=== PATIENT | male | born 1990 | race Hispanic/Latino ===

== ENCOUNTER 2025-04-02 12:07 | Emergency (ER) | payer SELFPAY ==
[2025-04-02] MEDS ORDERED: LIDOCAINE 2% W/EPI 1:200,000 MPF 20 ML VIAL IM ONE (12:21)
--- NOTE | 2025-04-02 12:39 | ER ---
Nurse's Notes [facility] Name: Garfield Mai Age: 34 yrs Sex: Male : 1990 Arrival Date: 04/02/2025 Time: 12:07 Bed 10 Private MD: Diagnosis: Laceration without foreign body of left thumb without damage to nail Presentation: 04/02 12:22 Chief complaint: Patient states: WAS FIXING THE WASHER AND THE TOOL SLIPPED, CUTTING LT dd2 THUMB. Coronavirus screen: At this time, the client does not indicate any symptoms associated with coronavirus-19. Ebola Screen: No symptoms or risks identified at this time. Initial Sepsis Screen: Does the patient meet any 2 criteria? No. Patient's initial sepsis screen is negative. Does the patient have a suspected source of infection? No. Patient's initial sepsis screen is negative. Risk Assessment: Do you want to hurt yourself or someone else? Patient reports no desire to harm self or others. Onset of symptoms was April 02, 2025. 12:22 Method Of Arrival: Ambulatory dd2 12:22 Acuity: ANA 4 dd2 Triage Assessment: 12:24 General: Appears in no apparent distress. uncomfortable, Behavior is cooperative, dd2 appropriate for age, agitated. Pain: Complains of pain in dorsal aspect of proximal phalanx of left thumb and palmar aspect of proximal phalanx of left thumb Pain currently is 5 out of 10 on a pain scale. EENT: No deficits noted. No signs and/or symptoms were reported regarding the EENT system. Neuro: No deficits noted. Cardiovascular: No deficits noted. Respiratory: No deficits noted. GI: No deficits noted. No signs and/or symptoms were reported involving the gastrointestinal system. : No deficits noted. No signs and/or symptoms were reported regarding the genitourinary system. Derm: Wound noted LT THUMB Wound is LACERATION. Musculoskeletal: No deficits noted. No signs and/or symptoms reported regarding the musculoskeletal system. Injury Description: Laceration sustained to LT THUMB was sustained less than 30 minutes ago. is bleeding profusely at this time. A dressing was applied. Historical: - Allergies: 12:24 No Known Allergies; dd2 - PMHx: 12:24 None; dd2 - PSHx: 12:24 None; dd2 - Immunization history:: Adult Immunizations unknown, Last tetanus immunization: unknown. - Infectious Disease History:: Denies. - Social history:: Smoking status: Patient denies any tobacco usage or history of. Screenin:26 [facility] ED Fall Risk Assessment (Adult) History of falling in the last 3 months, dd2 including since admission No falls in past 3 months (0 pts) Confusion or Disorientation No (0 pts) Intoxicated or Sedated No (0 pts) Impaired Gait No (0 pts) Mobility Assist Device Used No (0 pt) Altered Elimination No (0 pt) Score/Fall Risk Level 0 - 2 = Low Risk Oriented to surroundings, Maintained a safe environment, Educated pt \T\ family on fall prevention, incl call for assistance when getting out of bed, Assessed \T\ reinforced patient's understanding of fall precautions, Hourly rounding (assess needs \T\ fall precautionary measures) done. Abuse screen: Denies threats or abuse. Denies injuries from another. Nutritional screening: No deficits noted. Tuberculosis screening: No symptoms or risk factors identified. Assessment: 12:26 Reassessment: SEE TRIAGE ASSESSMENT FOR FULL ASSESSMENT. dd2 Vital Signs: 12:22 BP 129 / 80; Pulse 82; Resp 17; Temp 98.3; Pulse Ox 98% on R/A; Weight 88.45 kg; Height dd2 5 ft. 8 in. ; Pain 5/10; 12:22 Body Mass Index 29.65 (88.45 kg, 172.72 cm) dd2 12:22 Pain Scale: Adult dd2 [place] Com[place] Score: 12:26 Eye Response: spontaneous(4). Motor Response: obeys commands(6). Verbal Response: dd2 oriented(5). Total: 15. ED Course: 12:08 Patient arrived in ED. mr 12:10 Issa Washington FNP-C is PHCP. dr5 12:10 Brian Rodarte DO is Attending Physician. dr5 12:15 BRIGETTE VERMA, RN is Primary Nurse. dd2 12:24 Triage completed. dd2 12:24 Arm band placed on right wrist. dd2 12:26 Patient has correct armband on for positive identification. Bed in low position. Call dd2 light in reach. Client placed on continuous cardiac and pulse oximetry monitoring. NIBP monitoring applied. Door closed. Noise minimized. Verbal reassurance given. 12:26 Assist provider with laceration repair on left hand and palmar aspect of proximal dd2 phalanx of left thumb and dorsal aspect of proximal phalanx of left thumb that was between 7.6 to 12.5 cm using sutures. Set up tray. Performed by Issa GOMEZ. Patient did not have IV access during this emergency room visit. Patient maintains SpO2 saturation greater than 95% on room air. 12:51 Assist provider with laceration repair Dressed with 4X4s, Kerlix, Patient tolerated dd2 well. Dressings:. Wound care: to laceration located on LT THUMB was cleaned with with SALINE, dressed with 4X4s, Kerlix, Patient tolerated well. 12:54 Provided Education on: D/C EDUCATION. dd2 Administered Medications: 12:29 Drug: Lidocaine-Epinephrine Infiltration -1%: (1:100,000) 20 ml 20 ml Infiltration dd2 once; to bedside {Note: ADMINISTERED BY ISSA WASHINGTON, ESTEVAN.} Volume: 20 ml; Route: Infiltration; Site: affected area; 12:56 Follow up: Response: No adverse reaction dd2 12:51 Drug: Boostrix Tdap IM 0.5 ml IM once; as a single dose Route: IM; Site: left deltoid; dd2 12:56 Follow up: Response: No adverse reaction dd2 Medication: 12:26 Vaccine Information Statement (VIS) provided today. Questions and/or concerns dd2 addressed. VIS edition date: June 13, 2021. Outcome: 12:39 Discharge ordered by . dr5 12:51 Discharged to home ambulatory, dd2 12:51 Condition: stable 12:51 Discharge instructions given to patient, Instructed on discharge instructions, follow up and referral plans. medication usage, Demonstrated understanding of instructions, follow-up care, medications, 12:55 Patient left the ED. dd2 Signatures: Bronwyn Barnes, Raúl Olsen mr BRIGETTE VERMA, RN RN dd2 Issa Washington, PATRICIA [employer] HISTORY TEACHER-Cdr5
--- NOTE | 2025-04-02 12:39 | EDPHYS ---
Physician Documentation [facility] Name: Garfield Mai Age: 34 yrs Sex: Male : 1990 Arrival Date: 04/02/2025 Time: 12:07 Bed 10 Private MD: ED Physician Brian Rodarte HPI: 04/02 12:42 This 34 yrs old Male presents to ER via Ambulatory with complaints of Thumb dr5 laceration. 12:42 Onset: The symptoms/episode began/occurred acutely. Patient is a 34-year-old male with dr5 no past history coming in with laceration to left thumb that occurred right prior to arrival. Patient reports that he was using a air box tester and excellently cut the left thumb. Patient is not up-to-date on tetanus. Patient does not take daily medications.. Historical: - Allergies: 12:24 No Known Allergies; dd2 - PMHx: 12:24 None; dd2 - PSHx: 12:24 None; dd2 - Immunization history:: Adult Immunizations unknown, Last tetanus immunization: unknown. - Infectious Disease History:: Denies. - Social history:: Smoking status: Patient denies any tobacco usage or history of. ROS: 12:42 Constitutional: as per hpi dr5 Exam: 12:42 Constitutional: This is a well developed, well nourished patient who is awake, alert, dr5 and in no acute distress. Head/Face: Normocephalic, atraumatic. Eyes: Pupils equal round and reactive to light, extra-ocular motions intact. Lids and lashes normal. Conjunctiva and sclera are non-icteric and not injected. Cornea within normal limits. Periorbital areas with no swelling, redness, or edema. Chest/axilla: Normal chest wall appearance and motion. Nontender with no deformity. No lesions are appreciated. Cardiovascular: Regular rate and rhythm with a normal S1 and S2. Normal PMI, no JVD. No pulse deficits. Respiratory: Lungs have equal breath sounds bilaterally, clear to auscultation. No rales, rhonchi or wheezes noted. No increased work of breathing, no retractions or nasal flaring. Abdomen/GI: Soft, non-tender, non-distended Back: No spinal tenderness. No costovertebral tenderness. Full range of motion. 12:42 Musculoskeletal/extremity: Extremities: noted in the dorsal aspect of proximal phalanx of left thumb: laceration, ROM: no acute changes, intact in all extremities, Circulation is intact in all extremities. Pulses: the dorsal aspect of proximal phalanx of left thumb Sensation intact. Tendon exam: specific tendon testing normal through active and passive range of motion 12:42 Skin: injury, laceration(s), the wound is approximately 2 cm(s), with a depth of .5 cm(s), of the dorsal aspect of proximal phalanx of left thumb, Vital Signs: 12:22 BP 129 / 80; Pulse 82; Resp 17; Temp 98.3; Pulse Ox 98% on R/A; Weight 88.45 kg; Height dd2 5 ft. 8 in. ; Pain 5/10; 12:22 Body Mass Index 29.65 (88.45 kg, 172.72 cm) dd2 12:22 Pain Scale: Adult dd2 [place] Coma Score: 12:26 Eye Response: spontaneous(4). Motor Response: obeys commands(6). Verbal Response: dd2 oriented(5). Total: 15. Laceration: 12:42 Wound Repair of 2cm ( 0.8in ) subcutaneous laceration to dorsal aspect of proximal dr5 phalanx of left thumb. Linear shaped.. Distal neuro/vascular/tendon intact. Anesthesia: Local anesthetic administered with 2 mls of 1% lidocaine w/ Epi. Wound prep: Simple cleansing by me. Skin closed with 7 4-0 Prolene using simple sutures and sterile technique. Dressed with non-adherent dressing. Patient tolerated well. MDM: 12:10 Medical Screening Exam initiated dr5 12:42 Differential diagnosis: Laceration, tendon injury, abrasion. Data reviewed: vital dr5 signs, nurses notes. 12:45 I considered the following discharge prescriptions or medication management in the [facility] emergency department Medications were administered in the Emergency Department. See MAR. Care significantly affected by the following Social Determinants of Health: Poor access to healthcare and/or lack of insurance, Poor access to transportation, Problems related to employment. Counseling: I had a detailed discussion with the patient and/or guardian regarding the historical points, exam findings, and any diagnostic results supporting the discharge/admit diagnosis, the presence of at least one elevated blood pressure reading (>120/80) during this emergency department visit, the need for outpatient follow up, for definitive care, a family practitioner, to return to the emergency department if symptoms worsen or persist or if there are any questions or concerns that arise at home. ED course: Will have patient return in 7 to 10 days for suture removal. Tetanus administered in ER. 7 sutures placed with well approximation of wound. Will give Keflex to prevent infection. All questions answered. Patient wound was wrapped and wound care given. Strict ER precautions given.. 04/02 12:19 Order name: Dressing - Wound; Complete Time: 12:51 dr5 04/02 12:19 Order name: Prolene, Sutures; Complete Time: 12:29 dr5 04/02 12:19 Order name: Setup Suture Tray; Complete Time: 12:29 dr5 Administered Medications: 12:29 Drug: Lidocaine-Epinephrine Infiltration -1%: (1:100,000) 20 ml 20 ml Infiltration dd2 once; to bedside {Note: ADMINISTERED BY ISSA WASHINGTON NP.} Volume: 20 ml; Route: Infiltration; Site: affected area; 12:56 Follow up: Response: No adverse reaction dd2 12:51 Drug: Boostrix Tdap IM 0.5 ml IM once; as a single dose Route: IM; Site: left deltoid; dd2 12:56 Follow up: Response: No adverse reaction dd2 Disposition: 13:23 I was immediately available on-site in the Emergency Department for consultation in the ms3 care of the patient. Disposition Summary: 04/02/25 12:39 Discharge Ordered Notes: Location: Home dr5 Condition: Stable dr5 Diagnosis - Laceration without foreign body of left thumb without damage to nail dr5 Followup: dr5 - With: Emergency Department - When: As needed - Reason: Worsening of condition Followup: dr5 - With: Private Physician - When: 7 - 10 days - Reason: Staple/Suture removal Discharge Instructions: - Discharge Summary Sheet dr5 - Laceration Care, Adult dr5 Forms: - Medication Reconciliation Form dr5 - Antibiotic Education dr5 - Patient Portal Instructions dr5 - Leadership Thank You Letter dr5 Prescriptions: - Cephalexin 500 mg Oral Capsule - take 1 capsule ORAL route every 12 hours for 10 days; 20 capsule; Refills: 0, dr5 Product Selection Permitted Signatures: Brian Rodarte DO DO ms3 BRIGETTE VERMA RN RN dd2 Issa Washington, SERGIO-C MODELING TEACHER-[facility]5
[2025-04-02] MEDS ORDERED: TDAP (DIPHTH,PERTUSS(ACELL),TET VAC) 0.5 ML VIAL IMVAC ONE (12:41)
[2025-04-02 12:59] VITALS: BP 129/80; TEMP 98.3; O2SAT 98
== END 2025-04-02 12:55 | disposition home or self-care (01) ==
LOC: ER 12:07
DX: S61.012A Laceration without foreign body of left thumb without damage to nail, initial encounter (principal)
CPT/HCPCS: 12001; 90715; 96372; 99284